=== PATIENT | female | born 1980 | race Caucasian/White ===

== ENCOUNTER 2022-06-25 18:09 | Emergency (ER) | payer BC ==
[~2022-06-25] VITALS: Ht 160 cm; Wt 106.4 kg
[2022-06-25 18:53] VITALS: BP 171/99
== END 2022-06-25 20:50 | disposition home or self-care (01) ==
LOC: ER 18:10
DX: M25.511 Pain in right shoulder (principal); M62.838 Other muscle spasm; Z91.040 Latex allergy status; Z88.6 Allergy status to analgesic agent
CPT/HCPCS: 73030; 99284